=== PATIENT | male | born 1960 | race Caucasian/White ===

== ENCOUNTER 2018-03-02 10:06 | Inpatient (IN) | payer MEDICAID ==
[~2018-03-02] VITALS: Ht 167.6 cm; Wt 49.0 kg
[2018-03-02] MEDS ORDERED: ASPIRIN 81MG TABLET PO ONE (10:45)
[2018-03-02 11:03] LABS: BASOPHILS % 0.3 % (0.0-2.0); HEMATOCRIT. 44.3 % (42.0-52.0); HEMOGLOBIN. 14.6 g/dL (14.0-18.0); LYMPHOCYTES % 39.5 % (20.0-50.0); MEAN CORPUSCULAR HEMOGLOBIN 27.5 pg (28.0-32.0); MEAN CORPUSCULAR VOLUME 83.5 fL (80.0-94.0); MEAN PLATELET VOLUME 9.8 fl (7.4-10.4); MONOCYTES % 9.4 % (2.0-8.0); NEUTROPHILS % 49.8 % (40.0-76.0); PLATELET 106 x1000/uL (130-400)
[2018-03-02 11:11] LABS: CHLORIDE 109 mEq/L (98-107)
[2018-03-02 11:12] LABS: INR 1.1; PARTIAL THROMBOPLASTIN TIME 26.8 sec (23.4-31.0); PROTHROMBIN TIME 10.8 sec (9.1-11.1)
[2018-03-02 11:18] LABS: CREATINE KINASE 50 IU/L (39-308)
[2018-03-02 11:23] LABS: CREATINE KINASE MB FRACTION 1.9 ng/mL (0.5-3.6)
[2018-03-02] MEDS ORDERED: FUROSEMIDE 40MG/4ML VIAL IVP ONE (11:30)
[2018-03-02] MEDS ORDERED: ONDANSETRON HCL 4MG/2ML INJ IV PRN (13:00)
[2018-03-02] MEDS ORDERED: HYDROCODONE/ACETAMINOPHEN 5/325MG TABLET PO PRN (13:00)
[2018-03-02] MEDS ORDERED: MAGNESIUM/ALUMINUM HYDROXIDE/SIMETHICONE 30ML UDC PO PRN (13:00)
[2018-03-02] MEDS ORDERED: HYDROCODONE/ACETAMINOPHEN 10/325MG TABLET PO PRN (13:00)
[2018-03-02] MEDS ORDERED: ACETAMINOPHEN 325MG TABLET PO PRN (13:00)
[2018-03-02] MEDS ORDERED: IPRATROPIUM/ALBUTEROL 0.5-3(2.5)MG/3ML NEB INH PRN (13:00)
[2018-03-02] MEDS ORDERED: ACETAMINOPHEN 650MG SUPP PR PRN (13:00)
[2018-03-02] MEDS ORDERED: ACETAMINOPHEN 650MG/20.3ML UDC GT PRN (13:00)
[2018-03-02 17:04] VITALS: BP 112/74
[2018-03-02 17:05] VITALS: BP 112/84
[2018-03-02] MEDS: ENOXAPARIN 40MG/0.4ML SYR SUBCUT SCH (18:11)
[2018-03-02 20:00] VITALS: BP 117/67
[2018-03-02 21:49] LABS: CREATINE KINASE 59 IU/L (39-308); CREATINE KINASE MB FRACTION 1.6 ng/mL (0.5-3.6)
[2018-03-03] VITALS (7 sets, daily range): BP systolic 103–121; BP diastolic 61–72
[2018-03-03 01:06] LABS: CREATINE KINASE 43 IU/L (39-308); CREATINE KINASE MB FRACTION 1.3 ng/mL (0.5-3.6)
[2018-03-03 06:29] LABS: BASOPHILS % 0.3 % (0.0-2.0); EOSINOPHILS % 2.1 % (0.0-5.0); HEMATOCRIT. 48.3 % (42.0-52.0); HEMOGLOBIN. 15.9 g/dL (14.0-18.0); LYMPHOCYTES % 34.9 % (20.0-50.0); MEAN CORPUSCULAR HEMOGLOBIN 27.4 pg (28.0-32.0); MEAN CORPUSCULAR VOLUME 82.9 fL (80.0-94.0); MEAN PLATELET VOLUME 11.4 fl (7.4-10.4); MONOCYTES % 11.6 % (2.0-8.0); NEUTROPHILS % 51.1 % (40.0-76.0); PLATELET 125 x1000/uL (130-400); RED BLOOD CELL COUNT 5.83 mill/uL (4.7-6.1); RED CELL DISTRIBUTION WIDTH 16.1 % (11.6-14.6)
[2018-03-03 06:54] LABS: CHLORIDE 105 mEq/L (98-107)
[2018-03-03 07:11] LABS: HDL CHOLESTEROL 46 mg/dL (40-59); LDL CHOLESTEROL 101 mg/dL (5-100); T4 FREE 1.18 ng/dL (0.76-1.46)
[2018-03-03] MEDS ORDERED: ASPIRIN 81MG TABLET PO SCH (10:30)
[2018-03-03] MEDS: ENOXAPARIN 40MG/0.4ML SYR SUBCUT SCH (17:30)
[2018-03-03] MEDS ORDERED: METOPROLOL TARTRATE 25MG TABLET PO SCH (21:00)
[2018-03-04] MEDS ORDERED: FUROSEMIDE 40MG TABLET PO SCH (09:00)
[2018-03-04] MEDS ORDERED: LISINOPRIL 5MG TABLET PO SCH (09:00)
== END 2018-03-03 21:15 | disposition home or self-care (01) | DRG 194 ==
LOC: ER 10:06 → 7WST 11:29 → EDBEDREQ 11:31 → EDBEDREQTM 11:31 → ENRESERV 15:16 → CANBEDREQ 16:18
PROVIDERS: ADMIT Internal Medicine; ATTEND Internal Medicine
DX: I11.0 Hypertensive heart disease with heart failure (principal); E44.1 Mild protein-calorie malnutrition; I34.0 Nonrheumatic mitral (valve) insufficiency; I50.33 Acute on chronic diastolic (congestive) heart failure; R07.89 Other chest pain
CPT/HCPCS: 36415; 71045; 80061; 82550; 82553; 83880; 84439; 84443; 84481; 84484; 93005; 93306; 93970; 96374; 97161; 99291; J1650; J1940

== ENCOUNTER 2018-03-07 21:36 | Emergency (ER) | payer MEDICAID ==
[~2018-03-07] VITALS: Ht 167.6 cm; Wt 67.0 kg
[2018-03-07] MEDS ORDERED: FAMOTIDINE 20MG/2ML VIAL IV STA (22:29)
[2018-03-07] MEDS ORDERED: SODIUM CHLORIDE 0.9% 1,000 ML IV ONE (22:29)
[2018-03-07] MEDS ORDERED: MAGNESIUM/ALUMINUM HYDROXIDE/SIMETHICONE 30ML UDC PO STA (22:29)
[2018-03-07] MEDS ORDERED: ONDANSETRON HCL 4MG/2ML INJ IV STA (22:29)
[2018-03-07 23:20] LABS: BASOPHILS % 0.2 % (0.0-2.0); EOSINOPHILS % 0.1 % (0.0-5.0); HEMATOCRIT. 54.3 % (42.0-52.0); LYMPHOCYTES % 24.5 % (20.0-50.0); MEAN CORPUSCULAR HEMOGLOBIN 27.9 pg (28.0-32.0); MEAN CORPUSCULAR VOLUME 84.2 fL (80.0-94.0); MEAN PLATELET VOLUME 10.2 fl (7.4-10.4); MONOCYTES % 6.7 % (2.0-8.0); NEUTROPHILS % 68.5 % (40.0-76.0); PLATELET 123 x1000/uL (130-400); RED BLOOD CELL COUNT 6.45 mill/uL (4.7-6.1); RED CELL DISTRIBUTION WIDTH 16.3 % (11.6-14.6)
[2018-03-07 23:27] LABS: INR 1.2; PROTHROMBIN TIME 11.8 sec (9.1-11.1)
[2018-03-07 23:31] LABS: CHLORIDE 104 mEq/L (98-107)
[2018-03-07 23:39] LABS: ETHANOL BLOOD < 10 mg/dL
[2018-03-08 03:08] VITALS: BP 102/67
[2018-03-08 03:08] LABS: CLARITY URINE CLEAR (CLEAR); COLOR URINE YELLOW (YELLOW); KETONES URINE NEGATIVE (NEGATIVE); LEUKOCYTE ESTERASE URINE NEGATIVE (NEGATIVE); NITRITE URINE NEGATIVE (NEGATIVE); OCCULT BLOOD URINE NEGATIVE (NEGATIVE); PROTEIN URINE TRACE (NEGATIVE); UROBILINOGEN URINE 0.2 E.U./dL (0.2-1.0)
[2018-03-08 03:19] LABS: *AMPHETAMINES SCREEN URINE NEGATIVE (NEGATIVE); *BARBITURATES SCREEN URINE NEGATIVE (NEGATIVE); *BENZODIAZEPINES SCREEN URINE NEGATIVE (NEGATIVE); *COCAINE SCREEN URINE NEGATIVE (NEGATIVE)
[2018-03-08 03:20] LABS: CANNABINOID URINE SCREEN NEGATIVE (NEGATIVE); METHADONE URINE SCREEN NEGATIVE (NEGATIVE); OPIATES URINE SCREEN NEGATIVE (NEGATIVE); PHENCYCLIDINE URINE SCREEN NEGATIVE (NEGATIVE)
== END 2018-03-08 03:09 | disposition home or self-care (01) ==
LOC: ER 21:36
DX: R10.84 Generalized abdominal pain (principal); R11.2 Nausea with vomiting, unspecified; E86.0 Dehydration; E78.00 Pure hypercholesterolemia, unspecified; R73.9 Hyperglycemia, unspecified; I10 Essential (primary) hypertension; R42 Dizziness and giddiness; Z98.890 Other specified postprocedural states
CPT/HCPCS: 36415; 71045; 80053; 80305; 81003; 83690; 83880; 84484; 85025; 85610; 93005; 96361; 96374; 96375; 99285; G0482; J2405; J3490; J7030

== ENCOUNTER 2018-03-10 12:05 | Inpatient (IN) | payer MEDICAID ==
[~2018-03-10] VITALS: Ht 167.6 cm; Wt 69.0 kg
[2018-03-10 14:12] LABS: BASOPHILS % 0.3 % (0.0-2.0); EOSINOPHILS % 0.2 % (0.0-5.0); HEMOGLOBIN. 15.3 g/dL (14.0-18.0); LYMPHOCYTES % 31.7 % (20.0-50.0); MEAN CORPUSCULAR HEMOGLOBIN 27.8 pg (28.0-32.0); MEAN CORPUSCULAR VOLUME 83.8 fL (80.0-94.0); MEAN PLATELET VOLUME 10.6 fl (7.4-10.4); MONOCYTES % 11.5 % (2.0-8.0); NEUTROPHILS % 56.3 % (40.0-76.0); PLATELET 108 x1000/uL (130-400); RED CELL DISTRIBUTION WIDTH 15.9 % (11.6-14.6)
[2018-03-10 14:27] LABS: CHLORIDE 110 mEq/L (98-107)
[2018-03-10] MEDS ORDERED: CLONIDINE 0.1MG TABLET PO PRN (17:45)
[2018-03-10] MEDS ORDERED: ONDANSETRON HCL 4MG/2ML INJ IV PRN (17:45)
[2018-03-10] MEDS ORDERED: DOCUSATE SODIUM 250MG CAPSULE PO PRN (17:45)
[2018-03-10] MEDS ORDERED: ACETAMINOPHEN 325MG TABLET PO PRN (17:45)
[2018-03-10] MEDS ORDERED: IPRATROPIUM/ALBUTEROL 0.5-3(2.5)MG/3ML NEB HHN PRN (17:45)
[2018-03-10 19:23] LABS: CREATINE KINASE 40 IU/L (39-308); CREATINE KINASE MB FRACTION 1.5 ng/mL (0.5-3.6)
[2018-03-10 20:14] LABS: HEPATITIS B SURFACE ANTIGEN NEGATIVE
[2018-03-10 20:42] LABS: HEPATITIS A AB IGM NEGATIVE (NEGATIVE)
[2018-03-10 22:00] VITALS: BP 113/80
[2018-03-10 22:05] VITALS: BP 131/80
[2018-03-10] MEDS ORDERED: IOHEXOL-350 100 ML BOTTLE ONE (22:14)
[2018-03-10] MEDS ORDERED: METO25TA6 PO (23:01)
[2018-03-10] MEDS ORDERED: FURO40TA5 PO (23:01)
[2018-03-10] MEDS ORDERED: LISI-186 PO (23:01)
[2018-03-11] VITALS: BP 109/109
[2018-03-11 04:00] VITALS: BP 116/82
[2018-03-11 06:13] LABS: HEMATOCRIT 46.1 % (42.0-52.0); HEMOGLOBIN 15.4 g/dL (14.0-18.0); MEAN CORPUSCULAR HEMOGLOBIN 27.7 pg (28.0-32.0); MEAN CORPUSCULAR VOLUME 83.1 fL (80.0-94.0); PLATELET 110 x1000/uL (130-400); RED BLOOD CELL COUNT 5.55 mill/uL (4.7-6.1); RED CELL DISTRIBUTION WIDTH 16.3 % (11.6-14.6)
[2018-03-11 07:07] LABS: CHLORIDE 111 mEq/L (98-107)
[2018-03-11 08:00] VITALS: BP 116/74
[2018-03-11] MEDS: FUROSEMIDE 40MG/4ML VIAL IVP SCH ×2 (10:05→17:56)
[2018-03-11 12:00] VITALS: BP 131/81
[2018-03-11 12:14] LABS: T4 FREE 1.39 ng/dL (0.76-1.46)
[2018-03-11 16:00] VITALS: BP 95/59
[2018-03-11 16:01] LABS: CREATINE KINASE 45 IU/L (39-308); CREATINE KINASE MB FRACTION 1.4 ng/mL (0.5-3.6)
[2018-03-11 20:00] VITALS: BP 119/63
[2018-03-11] MEDS: METOPROLOL TARTRATE 25MG TABLET PO SCH (21:41)
[2018-03-12] VITALS (18 sets, daily range): BP systolic 90–122; BP diastolic 50–71
[2018-03-12 00:08] LABS: CREATINE KINASE 35 IU/L (39-308); CREATINE KINASE MB FRACTION 1.4 ng/mL (0.5-3.6)
[2018-03-12 07:03] LABS: BASOPHILS % 0.2 % (0.0-2.0); EOSINOPHILS % 1.1 % (0.0-5.0); HEMATOCRIT. 49.4 % (42.0-52.0); HEMOGLOBIN. 16.3 g/dL (14.0-18.0); LYMPHOCYTES % 34.8 % (20.0-50.0); MEAN CORPUSCULAR HEMOGLOBIN 27.5 pg (28.0-32.0); MEAN CORPUSCULAR VOLUME 83.5 fL (80.0-94.0); MEAN PLATELET VOLUME 11.2 fl (7.4-10.4); MONOCYTES % 9.6 % (2.0-8.0); NEUTROPHILS % 54.3 % (40.0-76.0); PLATELET 130 x1000/uL (130-400); RED BLOOD CELL COUNT 5.92 mill/uL (4.7-6.1); RED CELL DISTRIBUTION WIDTH 16.3 % (11.6-14.6)
[2018-03-12 07:25] LABS: CHLORIDE 101 mEq/L (98-107)
[2018-03-12 07:48] LABS: CREATINE KINASE 33 IU/L (39-308); CREATINE KINASE MB FRACTION < 1.0 ng/mL (0.5-3.6)
[2018-03-12] MEDS ORDERED: IODIXANOL 320MG/ML 100 ML BOTTLE IV ONE (08:39)
[2018-03-12] MEDS ORDERED: LIDOCAINE HCL 1% 20ML VIAL (Pyxis) INJ ONE (08:40)
[2018-03-12] MEDS ORDERED: MIDAZOLAM HCL 2 MG/2 ML VIAL ONE (08:48)
[2018-03-12] MEDS ORDERED: FENTANYL CITRATE/PF 50MCG/ML 2ML VIAL ONE (08:48)
[2018-03-12] MEDS ORDERED: LIDOCAINE HCL 2% JELLY 5ML ONE (08:49)
[2018-03-12] MEDS ORDERED: TETRACAINE/BENZOCAINE/BUTAMBEN 20 GM SPRAY MM ONE (08:49)
[2018-03-12] MEDS ORDERED: ACETAMINOPHEN 325MG TABLET PO PRN (09:45)
[2018-03-12] MEDS ORDERED: ATROPINE SULFATE 1MG/10ML SYR IV PRN (09:45)
[2018-03-12] MEDS: FUROSEMIDE 40MG/4ML VIAL IVP SCH ×3 (10:02→16:58)
[2018-03-12] MEDS: METOPROLOL TARTRATE 25MG TABLET PO SCH ×2 (10:02→21:07)
[2018-03-12] MEDS ORDERED: HEPARIN SODIUM 1,000 UNIT/1ML VIAL IV ONE (10:26)
[2018-03-12] MEDS ORDERED: NICARDIPINE 100MCG/ML 10ML VIAL (CATH LAB) IV ONE (10:26)
[2018-03-12] MEDS ORDERED: NITROGLYCERIN 50MCG/ML 10ML VIAL (CATH LAB) IV ONE (10:26)
[2018-03-12] MEDS ORDERED: POTASSIUM CHLORIDE 20MEQ TABLET SR PO SCH (13:15)
[2018-03-13] VITALS (18 sets, daily range): BP systolic 94–119; BP diastolic 30–75
[2018-03-13 07:23] LABS: BASOPHILS % 0.6 % (0.0-2.0); EOSINOPHILS % 1.1 % (0.0-5.0); HEMATOCRIT. 46.6 % (42.0-52.0); HEMOGLOBIN. 15.7 g/dL (14.0-18.0); LYMPHOCYTES % 29.1 % (20.0-50.0); MEAN CORPUSCULAR HEMOGLOBIN 27.7 pg (28.0-32.0); MEAN CORPUSCULAR VOLUME 82.3 fL (80.0-94.0); MEAN PLATELET VOLUME 10.3 fl (7.4-10.4); MONOCYTES % 9.2 % (2.0-8.0); PLATELET 116 x1000/uL (130-400); RED BLOOD CELL COUNT 5.66 mill/uL (4.7-6.1); RED CELL DISTRIBUTION WIDTH 16.3 % (11.6-14.6)
[2018-03-13 07:32] LABS: INR 1.2; PROTHROMBIN TIME 11.8 sec (9.1-11.1)
[2018-03-13 07:50] LABS: CHLORIDE 101 mEq/L (98-107)
[2018-03-13] MEDS: FUROSEMIDE 40MG/4ML VIAL IVP SCH (09:08)
[2018-03-13] MEDS: METOPROLOL TARTRATE 25MG TABLET PO SCH ×2 (09:08→21:00)
[2018-03-13] MEDS ORDERED: POTASSIUM CHLORIDE 20MEQ TABLET SR PO NR (09:15)
[2018-03-13] MEDS: FUROSEMIDE 40MG TABLET PO SCH (17:50)
[2018-03-14] VITALS (15 sets, daily range): BP systolic 88–122; BP diastolic 36–69
[2018-03-14 06:41] LABS: BASOPHILS % 0.4 % (0.0-2.0); EOSINOPHILS % 2.3 % (0.0-5.0); HEMOGLOBIN. 15.3 g/dL (14.0-18.0); LYMPHOCYTES % 34.8 % (20.0-50.0); MEAN CORPUSCULAR HEMOGLOBIN 27.9 pg (28.0-32.0); MEAN CORPUSCULAR VOLUME 82.2 fL (80.0-94.0); MEAN PLATELET VOLUME 10.4 fl (7.4-10.4); MONOCYTES % 10.6 % (2.0-8.0); NEUTROPHILS % 51.9 % (40.0-76.0); PLATELET 110 x1000/uL (130-400); RED BLOOD CELL COUNT 5.47 mill/uL (4.7-6.1); RED CELL DISTRIBUTION WIDTH 16.1 % (11.6-14.6)
[2018-03-14 07:13] LABS: CHLORIDE 100 mEq/L (98-107)
[2018-03-14] MEDS: FUROSEMIDE 40MG TABLET PO SCH ×2 (09:08→17:25)
[2018-03-14] MEDS: METOPROLOL TARTRATE 25MG TABLET PO SCH ×2 (09:08→22:12)
[2018-03-14] MEDS ORDERED: POTASSIUM CHLORIDE 20MEQ TABLET SR PO NR (09:45)
[2018-03-15] VITALS (12 sets, daily range): BP systolic 90–116; BP diastolic 49–73
[2018-03-15 06:27] LABS: BASOPHILS % 0.4 % (0.0-2.0); EOSINOPHILS % 2.1 % (0.0-5.0); HEMATOCRIT. 44.9 % (42.0-52.0); HEMOGLOBIN. 14.9 g/dL (14.0-18.0); LYMPHOCYTES % 40.8 % (20.0-50.0); MEAN CORPUSCULAR HEMOGLOBIN 27.5 pg (28.0-32.0); MEAN CORPUSCULAR VOLUME 82.6 fL (80.0-94.0); MEAN PLATELET VOLUME 10.3 fl (7.4-10.4); NEUTROPHILS % 46.7 % (40.0-76.0); PLATELET 114 x1000/uL (130-400); RED BLOOD CELL COUNT 5.43 mill/uL (4.7-6.1); RED CELL DISTRIBUTION WIDTH 15.9 % (11.6-14.6)
[2018-03-15 06:32] LABS: CHLORIDE 104 mEq/L (98-107)
[2018-03-15] MEDS: METOPROLOL TARTRATE 25MG TABLET PO SCH ×2 (08:26→21:25)
[2018-03-15] MEDS: FUROSEMIDE 40MG TABLET PO SCH ×2 (08:26→17:25)
[2018-03-15] MEDS ORDERED: ACETAMINOPHEN 325MG TABLET PO PRN (12:00)
[2018-03-15] MEDS ORDERED: NITROGLYCERIN 0.4MG TABLET SL SL PRN (12:00)
[2018-03-15] MEDS: POTASSIUM CHLORIDE 20MEQ TABLET SR PO SCH (12:13)
[2018-03-16] VITALS (12 sets, daily range): BP systolic 95–146; BP diastolic 57–90
[2018-03-16 06:40] LABS: BASOPHILS % 0.3 % (0.0-2.0); EOSINOPHILS % 1.6 % (0.0-5.0); HEMATOCRIT. 44.9 % (42.0-52.0); HEMOGLOBIN. 14.6 g/dL (14.0-18.0); LYMPHOCYTES % 41.5 % (20.0-50.0); MEAN CORPUSCULAR HEMOGLOBIN 27.1 pg (28.0-32.0); MEAN CORPUSCULAR VOLUME 83.3 fL (80.0-94.0); MEAN PLATELET VOLUME 10.5 fl (7.4-10.4); MONOCYTES % 10.7 % (2.0-8.0); NEUTROPHILS % 45.9 % (40.0-76.0); PLATELET 115 x1000/uL (130-400); RED BLOOD CELL COUNT 5.39 mill/uL (4.7-6.1); RED CELL DISTRIBUTION WIDTH 16.3 % (11.6-14.6)
[2018-03-16 06:46] LABS: CHLORIDE 105 mEq/L (98-107)
[2018-03-16] MEDS: FUROSEMIDE 40MG TABLET PO SCH ×2 (08:03→18:00)
[2018-03-16] MEDS: POTASSIUM CHLORIDE 20MEQ TABLET SR PO SCH (08:03)
[2018-03-16] MEDS: METOPROLOL TARTRATE 25MG TABLET PO SCH ×2 (08:04→21:00)
[2018-03-16] MEDS ORDERED: CHLORHEXIDINE GLUCONATE 4% EXTERNAL USE TOP SCH (21:00)
[2018-03-16] MEDS ORDERED: BISACODYL 10MG SUPP PR PRN (21:00)
[2018-03-16] MEDS ORDERED: DOCUSATE SODIUM 100MG CAPSULE PO SCH (21:00)
[2018-03-16] MEDS ORDERED: ASCORBIC ACID 500 MG TABLET PO SCH (21:00)
[2018-03-16] MEDS: ALLOPURINOL 300 MG TABLET PO SCH (21:24)
[2018-03-17] VITALS (66 sets, daily range): BP systolic 70–191; BP diastolic 23–191
[2018-03-17] MEDS ORDERED: DEL NIDO ELECTROLYTE-S(PH 7.4) 1,000 ML IV ONE ×2 (00:30)
[2018-03-17] MEDS ORDERED: DOBUTAMINE HCL 250 MG in DEXT 5% WATER 230 ML IV ONE (00:30)
[2018-03-17] MEDS ORDERED: CEFAZOLIN 2,000 MG in DEXT 5% WATER 100 ML IV ONE (00:30)
[2018-03-17] MEDS ORDERED: INSULIN REGULAR (DRIP) 100 UNITS in SODIUM CHLORIDE 0.9% 99 ML IV ONE (00:30)
[2018-03-17] MEDS ORDERED: NICARDIPINE 40MG/200ML PREMIX 200 ML IV ONE (00:30)
[2018-03-17] MEDS ORDERED: NOREPINEPHRINE 4 MG in DEXT 5% WATER 246 ML IV ONE (00:30)
[2018-03-17] MEDS ORDERED: EPINEPHRINE 4 MG in DEXT 5% WATER 246 ML IV ONE (00:30)
[2018-03-17] MEDS ORDERED: AMINOCAPROIC ACID 10,000 MG in SODIUM CHLORIDE 0.9% 460 ML IV ONE (00:30)
[2018-03-17 01:08] LABS: CLARITY URINE CLEAR (CLEAR); COLOR URINE YELLOW (YELLOW); KETONES URINE NEGATIVE (NEGATIVE); LEUKOCYTE ESTERASE URINE NEGATIVE (NEGATIVE); NITRITE URINE NEGATIVE (NEGATIVE); OCCULT BLOOD URINE NEGATIVE (NEGATIVE); PH URINE 5.5 (4.5-8.0); PROTEIN URINE NEGATIVE (NEGATIVE); SPECIFIC GRAVITY URINE 1.013 (1.005-1.030); UROBILINOGEN URINE 0.2 E.U./dL (0.2-1.0)
[2018-03-17 04:09] LABS: BASOPHILS % 0.8 % (0.0-2.0); EOSINOPHILS % 1.1 % (0.0-5.0); HEMATOCRIT. 44.2 % (42.0-52.0); HEMOGLOBIN. 14.6 g/dL (14.0-18.0); LYMPHOCYTES % 41.6 % (20.0-50.0); MEAN CORPUSCULAR HEMOGLOBIN 27.3 pg (28.0-32.0); MEAN CORPUSCULAR VOLUME 82.6 fL (80.0-94.0); MEAN PLATELET VOLUME 10.2 fl (7.4-10.4); MONOCYTES % 9.3 % (2.0-8.0); NEUTROPHILS % 47.2 % (40.0-76.0); PLATELET 112 x1000/uL (130-400); RED BLOOD CELL COUNT 5.35 mill/uL (4.7-6.1); RED CELL DISTRIBUTION WIDTH 16.6 % (11.6-14.6)
[2018-03-17 04:11] LABS: INR 1.2
[2018-03-17 04:14] LABS: CHLORIDE 105 mEq/L (98-107)
[2018-03-17] MEDS: ALLOPURINOL 300 MG TABLET PO SCH (05:19)
[2018-03-17] MEDS ORDERED: NORMAL SALINE 0.9% 10 ML SYR ONE (06:21)
[2018-03-17] MEDS ORDERED: THROMBIN (BOVINE) 5000 UNITS/VIAL TOP ONE (06:21)
[2018-03-17] MEDS ORDERED: BACITRACIN 50,000 UNITS/VIAL ONE (06:22)
[2018-03-17] MEDS ORDERED: AMIODARONE HCL 50MG/ML 3ML VIAL IV ONE (06:48)
[2018-03-17] MEDS ORDERED: AMINOCAPROIC ACID 250 MG/ML 20ML VIAL ONE (06:48)
[2018-03-17] MEDS ORDERED: ALBUMIN HUMAN 25GM/100ML (25%) IV ONE (06:48)
[2018-03-17] MEDS ORDERED: CALCIUM CHLORIDE 1GM/10ML SYR IV ONE (06:49)
[2018-03-17] MEDS ORDERED: MANNITOL 20% 500 ML IV ONE (06:49)
[2018-03-17] MEDS ORDERED: SODIUM BICARBONATE 8.4% 1 MEQ/ML 50ML SYR IV ONE ×2 (06:49→06:50)
[2018-03-17] MEDS ORDERED: HEPARIN 10,000 UNITS/ML VIAL ONE ×2 (06:49→07:37)
[2018-03-17] MEDS ORDERED: PHENYLEPHRINE HCL 10 MG/ML 1ML (IV VIAL) IV ONE (06:49)
[2018-03-17] MEDS ORDERED: HEPARIN 1000 UNITS/ML 10ML ONE (06:50)
[2018-03-17] MEDS ORDERED: LIDOCAINE HCL 2% JELLY 5ML ONE (07:33)
[2018-03-17] MEDS ORDERED: CHLORHEXIDINE GLUCONATE 4% EXTERNAL USE TOP SCH (09:00)
[2018-03-17] MEDS: FUROSEMIDE 40MG TABLET PO SCH (09:00)
[2018-03-17] MEDS: POTASSIUM CHLORIDE 20MEQ TABLET SR PO SCH (09:00)
[2018-03-17] MEDS: METOPROLOL TARTRATE 25MG TABLET PO SCH (09:00)
[2018-03-17] MEDS ORDERED: WATER IV NR (09:30)
[2018-03-17] MEDS ORDERED: EPINEPHRINE IV NR (09:30)
[2018-03-17] MEDS ORDERED: DEXT 5% IV NR (09:30)
[2018-03-17] MEDS ORDERED: CALCIUM GLUCONATE IV NR (09:30)
[2018-03-17] MEDS ORDERED: MORPHINE SULFATE 10 MG/ML CPJ ONE (09:32)
[2018-03-17] MEDS ORDERED: MIDAZOLAM HCL 2 MG/2 ML VIAL ONE (09:32)
[2018-03-17] MEDS ORDERED: FENTANYL CITRATE/PF 50MCG/ML 2ML VIAL ONE (09:32)
[2018-03-17] MEDS ORDERED: MIDAZOLAM HCL 5 MG/5 ML VIAL ONE (09:32)
[2018-03-17] MEDS ORDERED: SUFENTANIL CITRATE 50 MCG/ML 5ML AMPUL IV ONE (11:13)
[2018-03-17] MEDS ORDERED: ALFENTANIL HCL 500 MCG/ML 2ML AMPUL IJ ONE (11:13)
[2018-03-17] MEDS ORDERED: DESMOPRESSIN ACETATE 4MCG/ML AMP ONE (12:07)
[2018-03-17] MEDS ORDERED: NITROGLYCERIN 50MG PREMIX 250 ML IV PRN (13:21)
[2018-03-17] MEDS ORDERED: SODIUM CHLORIDE 0.9% 500 ML IV PRN (13:21)
[2018-03-17] MEDS ORDERED: MORPHINE SULFATE 4 MG/ML CPJ (NOT FOR IM USE) IV PRN (13:30)
[2018-03-17] MEDS ORDERED: OXYCODONE HCL/ACETAMINOPHEN 5/325MG TABLET PO PRN ×2 (13:30)
[2018-03-17] MEDS ORDERED: ACETAMINOPHEN 325MG TABLET PO PRN (13:30)
[2018-03-17] MEDS ORDERED: MAGNESIUM SULFATE 3 GM in DEXT 5% WATER 100 ML IV PRN (13:30)
[2018-03-17 13:31] LABS: BASOPHILS % 0.1 % (0.0-2.0); EOSINOPHILS % 0.4 % (0.0-5.0); HEMATOCRIT. 26.1 % (42.0-52.0); HEMOGLOBIN. 8.8 g/dL (14.0-18.0); MEAN CORPUSCULAR HEMOGLOBIN 27.9 pg (28.0-32.0); MEAN CORPUSCULAR VOLUME 82.9 fL (80.0-94.0); MEAN PLATELET VOLUME 8.6 fl (7.4-10.4); MONOCYTES % 3.8 % (2.0-8.0); NEUTROPHILS % 70.7 % (40.0-76.0); PLATELET 170 x1000/uL (130-400); RED BLOOD CELL COUNT 3.15 mill/uL (4.7-6.1)
[2018-03-17 13:37] LABS: CHLORIDE 106 mEq/L (98-107); INR 1.5; PARTIAL THROMBOPLASTIN TIME 29.2 sec (23.4-31.0); PROTHROMBIN TIME 15.2 sec (9.1-11.1)
[2018-03-17 13:38] LABS: PHOSPHORUS 7.1 mg/dL (2.5-4.9)
[2018-03-17] MEDS ORDERED: MAGNESIUM SULFATE 2 GM in DEXTROSE 5% WATER 50 ML IV PRN (13:47)
[2018-03-17 13:58] LABS: BG BASE EXCESS -1.8 mmol/L (-2.0-2.0); BG CARBOXYHEMOGLOBIN 0.5 % (0.5-1.5); BG DEOXYHEMOGLOBIN 8.1 % (0.0-5.0); BG FRACTION INSPIRED OXYGEN 100; BG HCO3 ACT 25.6 mmol/L (22.0-26.0); BG METHEMOGLOBIN 0.5 % (0.0-1.5); BG OXYGEN SATURATION 91.8 % (92.0-98.5); BG OXYHEMOGLOBIN 90.9 % (94.0-97.0); BG PCO2 58.5 mmHg (35.0-45.0); BG PH 7.259 (7.350-7.450); BG PO2 77.6 mmHg (75.0-100.0); BG SAMPLE SITE A-LINE; BG TIDAL VOLUME(mL) 500 mL; BG VENT MODE VENT - A/C; BG VENT RATE 12 set
[2018-03-17] MEDS ORDERED: MEPERIDINE HCL/PF 25MG/ML CPJ IM PRN (14:00)
[2018-03-17] MEDS: ALBUMIN HUMAN 12.5G/250ML (5%) IV PRN (14:08)
[2018-03-17 14:37] LABS: BG BASE EXCESS -0.7 mmol/L (-2.0-2.0); BG CARBOXYHEMOGLOBIN 0.4 % (0.5-1.5); BG DEOXYHEMOGLOBIN 4.6 % (0.0-5.0); BG FRACTION INSPIRED OXYGEN 100; BG HCO3 ACT 26.2 mmol/L (22.0-26.0); BG METHEMOGLOBIN 0.8 % (0.0-1.5); BG OXYGEN SATURATION 95.3 % (92.0-98.5); BG OXYHEMOGLOBIN 94.2 % (94.0-97.0); BG PCO2 56.1 mmHg (35.0-45.0); BG PH 7.287 (7.350-7.450); BG PO2 99.6 mmHg (75.0-100.0); BG SAMPLE SITE A-LINE; BG TIDAL VOLUME(mL) 500 mL; BG TOTAL HEMOGLOBIN 8.2 g/dL (12.0-18.0); BG VENT MODE VENT - A/C; BG VENT RATE 12 set
[2018-03-17] MEDS ORDERED: ACETAMINOPHEN 650MG SUPP ONE (14:43)
[2018-03-17] MEDS ORDERED: DEXTROSE 50% WATER 50ML SYRINGE IV PRN ×2 (14:45)
[2018-03-17] MEDS: BLOOD SUGAR DIAGNOSTIC STRIP TEST SCH ×10 (14:45→23:45)
[2018-03-17] MEDS: DOPAMINE 400MG PREMIX 250 ML IV PRN (14:49)
[2018-03-17] MEDS: DEXT 5%/0.45% NACL 1000ML 1,000 ML IV SCH (14:51)
[2018-03-17] MEDS: CEFAZOLIN 1000MG PREMIX 50 ML IV SCH ×2 (14:52→21:59)
[2018-03-17] MEDS: MAGNESIUM 1 G PREMIX 100 ML IV PRN (14:52)
[2018-03-17] MEDS ORDERED: MAGNESIUM 1 G PREMIX 100 ML IV NR (15:00)
[2018-03-17] MEDS: IPRATROPIUM/ALBUTEROL 0.5-3(2.5)MG/3ML NEB HHN SCH ×2 (15:23→23:52)
[2018-03-17] MEDS: MAGNESIUM HYDROXIDE 400MG/5ML 30ML UDC PO SCH ×2 (16:00→20:00)
[2018-03-17] MEDS ORDERED: CALCIUM CHLORIDE 5,000 MG in DEXT 5% WATER 500 ML IV NR (16:00)
[2018-03-17] MEDS: MAGNESIUM/ALUMINUM HYDROXIDE/SIMETHICONE 30ML UDC NG SCH ×2 (16:00→20:00)
[2018-03-17 16:30] LABS: BG BASE EXCESS -0.7 mmol/L (-2.0-2.0); BG CARBOXYHEMOGLOBIN 0.1 % (0.5-1.5); BG DEOXYHEMOGLOBIN 1.3 % (0.0-5.0); BG FRACTION INSPIRED OXYGEN 100; BG HCO3 ACT 25.5 mmol/L (22.0-26.0); BG METHEMOGLOBIN 0.5 % (0.0-1.5); BG OXYGEN SATURATION 98.7 % (92.0-98.5); BG OXYHEMOGLOBIN 98.1 % (94.0-97.0); BG PCO2 49.9 mmHg (35.0-45.0); BG PH 7.326 (7.350-7.450); BG PO2 225.9 mmHg (75.0-100.0); BG SAMPLE SITE A-LINE; BG TIDAL VOLUME(mL) 500 mL; BG VENT MODE VENT - A/C; BG VENT RATE 16 set
[2018-03-17] MEDS ORDERED: COAGULATION FACTOR VIIA RECOMB 2MG VIAL IV NR (17:00)
[2018-03-17] MEDS: KCL 10MEQ/50ML PREMIX 200 ML IV PRN ×6 (17:12→23:45)
[2018-03-17 17:38] LABS: BG BASE EXCESS -1.2 mmol/L (-2.0-2.0); BG CARBOXYHEMOGLOBIN 0.2 % (0.5-1.5); BG DEOXYHEMOGLOBIN 1.8 % (0.0-5.0); BG FRACTION INSPIRED OXYGEN 70; BG HCO3 ACT 25.1 mmol/L (22.0-26.0); BG METHEMOGLOBIN 0.4 % (0.0-1.5); BG OXYGEN SATURATION 98.2 % (92.0-98.5); BG OXYHEMOGLOBIN 97.6 % (94.0-97.0); BG PCO2 50.6 mmHg (35.0-45.0); BG PH 7.313 (7.350-7.450); BG PO2 150.6 mmHg (75.0-100.0); BG SAMPLE SITE A-LINE; BG TIDAL VOLUME(mL) 500 mL; BG VENT MODE VENT - A/C; BG VENT RATE 16 set
[2018-03-17 18:11] LABS: HEMATOCRIT 21.7 % (42.0-52.0); HEMOGLOBIN 7.5 g/dL (14.0-18.0)
[2018-03-17 19:36] LABS: BG BASE EXCESS -0.8 mmol/L (-2.0-2.0); BG DEOXYHEMOGLOBIN 2.4 % (0.0-5.0); BG FRACTION INSPIRED OXYGEN 60; BG HCO3 ACT 25.1 mmol/L (22.0-26.0); BG METHEMOGLOBIN 0.6 % (0.0-1.5); BG OXYGEN SATURATION 97.6 % (92.0-98.5); BG PCO2 47.3 mmHg (35.0-45.0); BG PH 7.342 (7.350-7.450); BG PIP 22 cmH2O; BG PO2 123.4 mmHg (75.0-100.0); BG SAMPLE SITE A-LINE; BG TOTAL HEMOGLOBIN 8.3 g/dL (12.0-18.0); BG VENT MODE VENT - A/C; BG VENT RATE 16 set
[2018-03-17] MEDS: INSULIN REGULAR (DRIP) 100 UNITS in SODIUM CHLORIDE 0.9% 100 ML IV SCH (19:38)
[2018-03-17] MEDS: ACETAMINOPHEN 650MG SUPP PR PRN (22:01)
[2018-03-17 22:22] LABS: BG BASE EXCESS -2.1 mmol/L (-2.0-2.0); BG CARBOXYHEMOGLOBIN 0.3 % (0.5-1.5); BG DEOXYHEMOGLOBIN 1.9 % (0.0-5.0); BG FRACTION INSPIRED OXYGEN 60; BG HCO3 ACT 23.1 mmol/L (22.0-26.0); BG METHEMOGLOBIN 0.5 % (0.0-1.5); BG OXYGEN SATURATION 98.1 % (92.0-98.5); BG OXYHEMOGLOBIN 97.3 % (94.0-97.0); BG PCO2 41.5 mmHg (35.0-45.0); BG PH 7.364 (7.350-7.450); BG PIP 21 cmH2O; BG PO2 151.4 mmHg (75.0-100.0); BG SAMPLE SITE A-LINE; BG TOTAL HEMOGLOBIN 10.1 g/dL (12.0-18.0); BG VENT MODE VENT - A/C; BG VENT RATE 16 set
[2018-03-18] VITALS (153 sets, daily range): BP systolic 76–177; BP diastolic 23–177
[2018-03-18] MEDS: BLOOD SUGAR DIAGNOSTIC STRIP TEST SCH ×24 (00:45→23:45)
[2018-03-18 00:53] LABS: BG BASE EXCESS -1.3 mmol/L (-2.0-2.0); BG CARBOXYHEMOGLOBIN 0.3 % (0.5-1.5); BG DEOXYHEMOGLOBIN 1.9 % (0.0-5.0); BG FRACTION INSPIRED OXYGEN 50; BG HCO3 ACT 23.7 mmol/L (22.0-26.0); BG METHEMOGLOBIN 0.4 % (0.0-1.5); BG OXYGEN SATURATION 98.1 % (92.0-98.5); BG OXYHEMOGLOBIN 97.4 % (94.0-97.0); BG PCO2 40.9 mmHg (35.0-45.0); BG PH 7.381 (7.350-7.450); BG PIP 21 cmH2O; BG SAMPLE SITE A-LINE; BG TIDAL VOLUME(mL) 550 mL; BG VENT MODE VENT - A/C; BG VENT RATE 16 set
[2018-03-18] MEDS: KCL 10MEQ/50ML PREMIX 200 ML IV PRN ×2 (01:07→02:47)
[2018-03-18] MEDS: EPINEPHRINE 1 MG in DEXT 5% WATER 249 ML IV PRN ×3 (01:09→10:43)
[2018-03-18] MEDS: DOPAMINE 400MG PREMIX 250 ML IV PRN (01:20)
[2018-03-18 02:08] LABS: HEMOGLOBIN. 10.2 g/dL (14.0-18.0); MEAN CORPUSCULAR HEMOGLOBIN 28.7 pg (28.0-32.0); MEAN CORPUSCULAR VOLUME 84.4 fL (80.0-94.0); MEAN PLATELET VOLUME 10.5 fl (7.4-10.4); PLATELET 89 x1000/uL (130-400); RED BLOOD CELL COUNT 3.55 mill/uL (4.7-6.1); RED CELL DISTRIBUTION WIDTH 14.4 % (11.6-14.6)
[2018-03-18] MEDS ORDERED: FAMOTIDINE 20MG/2ML VIAL IV NR (02:45)
[2018-03-18] MEDS: ACETAMINOPHEN 650MG SUPP PR PRN (03:02)
[2018-03-18 03:38] LABS: PLATELET ESTIMATE DECREASED
[2018-03-18] MEDS: IPRATROPIUM/ALBUTEROL 0.5-3(2.5)MG/3ML NEB HHN SCH ×4 (03:40→21:18)
[2018-03-18] MEDS: MAGNESIUM/ALUMINUM HYDROXIDE/SIMETHICONE 30ML UDC NG SCH ×7 (04:00→19:48)
[2018-03-18] MEDS: MAGNESIUM HYDROXIDE 400MG/5ML 30ML UDC PO SCH ×7 (04:00→19:48)
[2018-03-18 04:50] LABS: BG CARBOXYHEMOGLOBIN 0.3 % (0.5-1.5); BG DEOXYHEMOGLOBIN 2.1 % (0.0-5.0); BG FRACTION INSPIRED OXYGEN 40; BG HCO3 ACT 23.9 mmol/L (22.0-26.0); BG METHEMOGLOBIN 0.4 % (0.0-1.5); BG OXYGEN SATURATION 97.9 % (92.0-98.5); BG OXYHEMOGLOBIN 97.2 % (94.0-97.0); BG PCO2 45.8 mmHg (35.0-45.0); BG PH 7.336 (7.350-7.450); BG PIP 24 cmH2O; BG PO2 127.1 mmHg (75.0-100.0); BG PRESSURE SUPPORT 8; BG SAMPLE SITE A-LINE; BG TIDAL VOLUME(mL) 550 mL; BG TOTAL HEMOGLOBIN 10.7 g/dL (12.0-18.0); BG VENT MODE VENT - SIMV; BG VENT RATE 12 set
[2018-03-18] MEDS: CEFAZOLIN 1000MG PREMIX 50 ML IV SCH (05:14)
[2018-03-18 05:22] LABS: BASOPHILS % 0.1 % (0.0-2.0); HEMATOCRIT. 29.2 % (42.0-52.0); HEMOGLOBIN. 9.9 g/dL (14.0-18.0); LYMPHOCYTES % 8.7 % (20.0-50.0); MEAN CORPUSCULAR HEMOGLOBIN 28.5 pg (28.0-32.0); MEAN CORPUSCULAR VOLUME 83.9 fL (80.0-94.0); MONOCYTES % 13.3 % (2.0-8.0); NEUTROPHILS % 77.9 % (40.0-76.0); PLATELET 83 x1000/uL (130-400); RED BLOOD CELL COUNT 3.48 mill/uL (4.7-6.1); RED CELL DISTRIBUTION WIDTH 14.5 % (11.6-14.6)
[2018-03-18] MEDS: DEXT 5%/0.45% NACL 1000ML 1,000 ML IV SCH ×2 (06:14→22:51)
[2018-03-18] MEDS ORDERED: ALBUMIN HUMAN 12.5G/250ML (5%) IV SCH (07:30)
[2018-03-18] MEDS ORDERED: FUROSEMIDE 20MG/2ML VIAL IVP SCH (07:30)
[2018-03-18] MEDS: DOCUSATE SODIUM 100MG CAPSULE PO SCH ×3 (08:20→16:43)
[2018-03-18] MEDS: FAMOTIDINE 20MG/2ML VIAL IV SCH (08:27)
[2018-03-18] MEDS: MAGNESIUM 1 G PREMIX 100 ML IV PRN (08:51)
[2018-03-18 09:01] LABS: BG BASE EXCESS -1.6 mmol/L (-2.0-2.0); BG CARBOXYHEMOGLOBIN 0.1 % (0.5-1.5); BG DEOXYHEMOGLOBIN 1.7 % (0.0-5.0); BG FRACTION INSPIRED OXYGEN 40; BG HCO3 ACT 24.2 mmol/L (22.0-26.0); BG OXYGEN SATURATION 98.3 % (92.0-98.5); BG OXYHEMOGLOBIN 98.2 % (94.0-97.0); BG PCO2 45.6 mmHg (35.0-45.0); BG PH 7.343 (7.350-7.450); BG PO2 157.3 mmHg (75.0-100.0); BG PRESSURE SUPPORT 8; BG SAMPLE SITE A-LINE; BG TIDAL VOLUME(mL) 550 mL; BG TOTAL HEMOGLOBIN 9.7 g/dL (12.0-18.0); BG VENT MODE VENT - SIMV; BG VENT RATE 10 set
[2018-03-18] MEDS: INSULIN REGULAR (DRIP) 100 UNITS in SODIUM CHLORIDE 0.9% 100 ML IV SCH (10:09)
[2018-03-18 10:51] LABS: BG BASE EXCESS -2.3 mmol/L (-2.0-2.0); BG CARBOXYHEMOGLOBIN 0.1 % (0.5-1.5); BG DEOXYHEMOGLOBIN 1.7 % (0.0-5.0); BG FRACTION INSPIRED OXYGEN 40; BG METHEMOGLOBIN 0.1 % (0.0-1.5); BG OXYGEN SATURATION 98.3 % (92.0-98.5); BG OXYHEMOGLOBIN 98.1 % (94.0-97.0); BG PCO2 41.9 mmHg (35.0-45.0); BG PH 7.358 (7.350-7.450); BG PO2 156.4 mmHg (75.0-100.0); BG PRESSURE SUPPORT 8; BG SAMPLE SITE A-LINE; BG TIDAL VOLUME(mL) 550 mL; BG TOTAL HEMOGLOBIN 9.2 g/dL (12.0-18.0); BG VENT MODE VENT - SIMV; BG VENT RATE 8 set
[2018-03-18 11:54] LABS: BG BASE EXCESS -0.9 mmol/L (-2.0-2.0); BG CARBOXYHEMOGLOBIN 0.3 % (0.5-1.5); BG DEOXYHEMOGLOBIN 1.7 % (0.0-5.0); BG FRACTION INSPIRED OXYGEN 40; BG HCO3 ACT 24.4 mmol/L (22.0-26.0); BG METHEMOGLOBIN 0.1 % (0.0-1.5); BG OXYGEN SATURATION 98.3 % (92.0-98.5); BG OXYHEMOGLOBIN 97.9 % (94.0-97.0); BG PCO2 43.5 mmHg (35.0-45.0); BG PH 7.367 (7.350-7.450); BG PO2 155.8 mmHg (75.0-100.0); BG PRESSURE SUPPORT 8; BG SAMPLE SITE A-LINE; BG TOTAL HEMOGLOBIN 9.7 g/dL (12.0-18.0); BG VENT MODE VENT - CPAP
[2018-03-18] MEDS: ALBUMIN HUMAN 12.5G/250ML (5%) IV PRN (14:10)
[2018-03-18] MEDS ORDERED: IPRATROPIUM BROMIDE (0.02%) 0.5MG/2.5ML NEB HHN SCH (14:45)
[2018-03-18] MEDS ORDERED: FUROSEMIDE 40MG/4ML VIAL IVP NR (14:45)
[2018-03-18] MEDS ORDERED: IPRATROPIUM/ALBUTEROL 0.5-3(2.5)MG/3ML NEB HHN PRN (15:15)
[2018-03-18] MEDS ORDERED: ALBUTEROL (0.083%) 2.5MG/3ML NEB HHN SCH (16:00)
[2018-03-18] MEDS: ONDANSETRON HCL 4MG/2ML INJ IV PRN (19:21)
[2018-03-19] VITALS (117 sets, daily range): BP systolic 77–145; BP diastolic 33–74
[2018-03-19] MEDS: BLOOD SUGAR DIAGNOSTIC STRIP TEST SCH ×24 (00:45→23:57)
[2018-03-19] MEDS: IPRATROPIUM/ALBUTEROL 0.5-3(2.5)MG/3ML NEB HHN SCH ×7 (00:58→21:28)
[2018-03-19] MEDS: MAGNESIUM/ALUMINUM HYDROXIDE/SIMETHICONE 30ML UDC NG SCH ×3 (03:47→08:19)
[2018-03-19] MEDS: MAGNESIUM HYDROXIDE 400MG/5ML 30ML UDC PO SCH ×5 (03:47→16:39)
[2018-03-19] MEDS: ONDANSETRON HCL 4MG/2ML INJ IV PRN (05:54)
[2018-03-19 06:23] LABS: BASOPHILS % 0.1 % (0.0-2.0); EOSINOPHILS % 0.1 % (0.0-5.0); HEMATOCRIT. 22.8 % (42.0-52.0); HEMOGLOBIN. 7.8 g/dL (14.0-18.0); LYMPHOCYTES % 7.7 % (20.0-50.0); MEAN CORPUSCULAR HEMOGLOBIN 29.1 pg (28.0-32.0); MEAN CORPUSCULAR VOLUME 85.1 fL (80.0-94.0); MEAN PLATELET VOLUME 10.8 fl (7.4-10.4); MONOCYTES % 10.8 % (2.0-8.0); NEUTROPHILS % 81.3 % (40.0-76.0); PLATELET 65 x1000/uL (130-400); RED BLOOD CELL COUNT 2.68 mill/uL (4.7-6.1); RED CELL DISTRIBUTION WIDTH 15.7 % (11.6-14.6)
[2018-03-19 06:27] LABS: PHOSPHORUS 4.7 mg/dL (2.5-4.9)
[2018-03-19] MEDS ORDERED: FUROSEMIDE 40MG/4ML VIAL IVP NR ×2 (07:15→22:00)
[2018-03-19] MEDS: DOCUSATE SODIUM 100MG CAPSULE PO SCH ×2 (08:22→16:39)
[2018-03-19] MEDS: FAMOTIDINE 20MG/2ML VIAL IV SCH (08:22)
[2018-03-19] MEDS ORDERED: MAGNESIUM 2 G PREMIX 50 ML IV NR (09:30)
[2018-03-19] MEDS: INSULIN REGULAR (DRIP) 100 UNITS in SODIUM CHLORIDE 0.9% 100 ML IV SCH (12:54)
[2018-03-19] MEDS ORDERED: ALBUMIN HUMAN 12.5G/250ML (5%) IV ONE (15:43)
[2018-03-19] MEDS ORDERED: POTASSIUM CHLORIDE 10MEQ IN WATER 50ML PREMIX IV ONE (15:43)
[2018-03-19] MEDS ORDERED: CEFAZOLIN 1000MG/50ML PREMIX IV ONE (15:43)
[2018-03-19] MEDS ORDERED: MAGNESIUM SULFATE 1G IN DEXT 5% 100ML PREMIX IV ONE (15:43)
[2018-03-19 16:14] LABS: HEMATOCRIT 30.4 % (42.0-52.0); HEMOGLOBIN 10.2 g/dL (14.0-18.0)
[2018-03-19] MEDS: DEXT 5%/0.45% NACL 1000ML 1,000 ML IV SCH (16:39)
[2018-03-19] MEDS ORDERED: MAGNESIUM HYDROXIDE 400MG/5ML 30ML UDC PO SCH (20:00)
[2018-03-19] MEDS ORDERED: FUROSEMIDE 40MG/4ML VIAL IVP ONE (22:15)
[2018-03-19 22:33] LABS: CHLORIDE 102 mEq/L (98-107)
[2018-03-19] MEDS: IRON SUCROSE COMPLEX 100 MG/5 ML ML IV SCH (22:56)
[2018-03-19] MEDS ORDERED: EPOETIN ALFA 4000UNITS/ML VIAL SUBCUT NR (23:30)
[2018-03-20] VITALS (49 sets, daily range): BP systolic 92–131; BP diastolic 39–82
[2018-03-20] MEDS: BLOOD SUGAR DIAGNOSTIC STRIP TEST SCH ×12 (01:14→21:30)
[2018-03-20] MEDS: IPRATROPIUM/ALBUTEROL 0.5-3(2.5)MG/3ML NEB HHN SCH ×5 (01:24→20:41)
[2018-03-20] MEDS ORDERED: AMIODARONE HCL 900 MG in DEXT 5% WATER 482 ML IV PRN (03:00)
[2018-03-20] MEDS ORDERED: AMIODARONE HCL 150 MG in DEXT 5% WATER 100 ML IV SCH (03:00)
[2018-03-20 05:43] LABS: BASOPHILS % 0.1 % (0.0-2.0); EOSINOPHILS % 0.3 % (0.0-5.0); HEMATOCRIT. 26.5 % (42.0-52.0); HEMOGLOBIN. 9.1 g/dL (14.0-18.0); LYMPHOCYTES % 9.4 % (20.0-50.0); MEAN CORPUSCULAR HEMOGLOBIN 29.6 pg (28.0-32.0); MEAN CORPUSCULAR VOLUME 85.6 fL (80.0-94.0); MEAN PLATELET VOLUME 9.5 fl (7.4-10.4); MONOCYTES % 6.6 % (2.0-8.0); NEUTROPHILS % 83.6 % (40.0-76.0); PLATELET 106 x1000/uL (130-400); RED BLOOD CELL COUNT 3.09 mill/uL (4.7-6.1); RED CELL DISTRIBUTION WIDTH 15.2 % (11.6-14.6)
[2018-03-20 06:08] LABS: CHLORIDE 101 mEq/L (98-107)
[2018-03-20 06:11] LABS: PHOSPHORUS 2.6 mg/dL (2.5-4.9)
[2018-03-20] MEDS: ONDANSETRON HCL 4MG/2ML INJ IV PRN (06:47)
[2018-03-20] MEDS: KCL 10MEQ/50ML PREMIX 150 ML IV PRN ×2 (08:02→09:11)
[2018-03-20] MEDS: DOCUSATE SODIUM 100MG CAPSULE PO SCH ×2 (08:24→17:00)
[2018-03-20] MEDS ORDERED: FUROSEMIDE 40MG/4ML VIAL IVP SCH (08:30)
[2018-03-20] MEDS ORDERED: DEXTROSE 50% WATER 50ML SYRINGE IV PRN (09:15)
[2018-03-20] MEDS: PANTOPRAZOLE SODIUM 40 MG/VIAL IV SCH (09:34)
[2018-03-20] MEDS ORDERED: INSULIN GLARGINE UD 100 UNITS/ML SYR SUBCUT NR (10:30)
[2018-03-20] MEDS: KCL 10MEQ/50ML PREMIX 100 ML IV PRN (10:30)
[2018-03-20] MEDS ORDERED: ALBUMIN HUMAN 12.5G/250ML (5%) IV NR (11:45)
[2018-03-20] MEDS: INSULIN LISPRO 100 UNITS/ML SUBCUT SCH ×3 (12:28→21:36)
[2018-03-20] MEDS: IRON SUCROSE COMPLEX 100 MG/5 ML ML IV SCH (21:06)
[2018-03-21] VITALS (25 sets, daily range): BP systolic 103–124; BP diastolic 49–62
[2018-03-21 05:42] LABS: BASOPHILS % 0.2 % (0.0-2.0); EOSINOPHILS % 0.3 % (0.0-5.0); HEMATOCRIT. 28.9 % (42.0-52.0); HEMOGLOBIN. 9.8 g/dL (14.0-18.0); LYMPHOCYTES % 18.1 % (20.0-50.0); MEAN CORPUSCULAR HEMOGLOBIN 29.5 pg (28.0-32.0); MEAN CORPUSCULAR VOLUME 87.2 fL (80.0-94.0); MEAN PLATELET VOLUME 9.5 fl (7.4-10.4); MONOCYTES % 11.8 % (2.0-8.0); NEUTROPHILS % 69.6 % (40.0-76.0); PLATELET 105 x1000/uL (130-400); RED BLOOD CELL COUNT 3.32 mill/uL (4.7-6.1); RED CELL DISTRIBUTION WIDTH 16.1 % (11.6-14.6)
[2018-03-21 06:09] LABS: CHLORIDE 102 mEq/L (98-107)
[2018-03-21] MEDS: BLOOD SUGAR DIAGNOSTIC STRIP TEST SCH ×4 (07:02→21:10)
[2018-03-21] MEDS: INSULIN LISPRO 100 UNITS/ML SUBCUT SCH ×4 (07:02→21:00)
[2018-03-21] MEDS: DOCUSATE SODIUM 100MG CAPSULE PO SCH ×2 (08:00→17:00)
[2018-03-21] MEDS: PANTOPRAZOLE SODIUM 40 MG/VIAL IV SCH (08:00)
[2018-03-21] MEDS: KCL 10MEQ/50ML PREMIX 100 ML IV PRN (08:01)
[2018-03-21] MEDS ORDERED: CALCIUM CHLORIDE 1,000 MG in DEXT 5% WATER 90 ML IV NR (09:00)
[2018-03-21] MEDS ORDERED: MAGNESIUM 2 G PREMIX 50 ML IV PRN (10:00)
[2018-03-21 10:14] LABS: HEMATOCRIT. 29.2 % (42.0-52.0); MEAN CORPUSCULAR HEMOGLOBIN 29.7 pg (28.0-32.0); MEAN CORPUSCULAR VOLUME 87.1 fL (80.0-94.0); PLATELET 116 x1000/uL (130-400); RED BLOOD CELL COUNT 3.36 mill/uL (4.7-6.1); RED CELL DISTRIBUTION WIDTH 15.9 % (11.6-14.6)
[2018-03-21 10:52] LABS: PLATELET ESTIMATE SLIGHTLY DECREASED
[2018-03-21 14:11] LABS: HEPATITIS B SURFACE ANTIGEN NEGATIVE
[2018-03-21 14:41] LABS: HEPATITIS A AB IGM NEGATIVE (NEGATIVE)
[2018-03-21] MEDS: IRON SUCROSE COMPLEX 100 MG/5 ML ML IV SCH (20:55)
[2018-03-22] VITALS (23 sets, daily range): BP systolic 106–131; BP diastolic 41–74
[2018-03-22 06:27] LABS: BASOPHILS % 0.3 % (0.0-2.0); EOSINOPHILS % 0.7 % (0.0-5.0); HEMATOCRIT. 28.9 % (42.0-52.0); HEMOGLOBIN. 9.9 g/dL (14.0-18.0); LYMPHOCYTES % 16.3 % (20.0-50.0); MEAN CORPUSCULAR HEMOGLOBIN 30.2 pg (28.0-32.0); MEAN CORPUSCULAR VOLUME 87.8 fL (80.0-94.0); MEAN PLATELET VOLUME 9.7 fl (7.4-10.4); MONOCYTES % 12.2 % (2.0-8.0); NEUTROPHILS % 70.5 % (40.0-76.0); PLATELET 123 x1000/uL (130-400); RED BLOOD CELL COUNT 3.29 mill/uL (4.7-6.1); RED CELL DISTRIBUTION WIDTH 15.9 % (11.6-14.6)
[2018-03-22] MEDS: BLOOD SUGAR DIAGNOSTIC STRIP TEST SCH ×4 (06:33→20:48)
[2018-03-22] MEDS: INSULIN LISPRO 100 UNITS/ML SUBCUT SCH ×4 (06:34→20:56)
[2018-03-22 06:47] LABS: CHLORIDE 103 mEq/L (98-107)
[2018-03-22 06:59] LABS: HAPTOGLOBIN 154 mg/dL (30-200)
[2018-03-22] MEDS: KCL 10MEQ/50ML PREMIX 100 ML IV PRN (07:08)
[2018-03-22] MEDS: KCL 10MEQ/50ML PREMIX 150 ML IV PRN (07:24)
[2018-03-22] MEDS ORDERED: POTASSIUM CHLORIDE 10MEQ IN WATER 50ML PREMIX IV ONE (07:44)
[2018-03-22] MEDS: DOCUSATE SODIUM 100MG CAPSULE PO SCH ×2 (09:00→18:03)
[2018-03-22] MEDS: PANTOPRAZOLE SODIUM 40 MG/VIAL IV SCH (09:00)
[2018-03-22] MEDS ORDERED: CALCIUM CHLORIDE 1,000 MG in DEXT 5% WATER 90 ML IV SCH (10:00)
[2018-03-23] VITALS (12 sets, daily range): BP systolic 98–128; BP diastolic 51–73
[2018-03-23] MEDS: BLOOD SUGAR DIAGNOSTIC STRIP TEST SCH ×4 (06:03→21:39)
[2018-03-23 07:01] LABS: BASOPHILS % 0.3 % (0.0-2.0); EOSINOPHILS % 0.8 % (0.0-5.0); HEMATOCRIT. 28.3 % (42.0-52.0); HEMOGLOBIN. 9.5 g/dL (14.0-18.0); MEAN CORPUSCULAR HEMOGLOBIN 29.9 pg (28.0-32.0); MEAN CORPUSCULAR VOLUME 89.2 fL (80.0-94.0); MEAN PLATELET VOLUME 9.8 fl (7.4-10.4); MONOCYTES % 13.1 % (2.0-8.0); NEUTROPHILS % 68.8 % (40.0-76.0); PLATELET 120 x1000/uL (130-400); RED BLOOD CELL COUNT 3.17 mill/uL (4.7-6.1); RED CELL DISTRIBUTION WIDTH 16.1 % (11.6-14.6)
[2018-03-23 07:06] LABS: CHLORIDE 107 mEq/L (98-107)
[2018-03-23] MEDS: INSULIN LISPRO 100 UNITS/ML SUBCUT SCH ×4 (07:20→21:00)
[2018-03-23] MEDS: PANTOPRAZOLE SODIUM 40 MG/VIAL IV SCH (08:50)
[2018-03-23] MEDS: DOCUSATE SODIUM 100MG CAPSULE PO SCH ×2 (08:50→17:42)
[2018-03-23] MEDS: ASPIRIN 325MG EC TABLET PO SCH (12:56)
[2018-03-24] VITALS (10 sets, daily range): BP systolic 90–131; BP diastolic 49–76
[2018-03-24] MEDS: BLOOD SUGAR DIAGNOSTIC STRIP TEST SCH ×3 (06:11→16:56)
[2018-03-24] MEDS: INSULIN LISPRO 100 UNITS/ML SUBCUT SCH ×2 (06:11→11:55)
[2018-03-24 07:16] LABS: BASOPHILS % 0.3 % (0.0-2.0); EOSINOPHILS % 0.9 % (0.0-5.0); HEMATOCRIT. 31.2 % (42.0-52.0); HEMOGLOBIN. 10.4 g/dL (14.0-18.0); LYMPHOCYTES % 16.2 % (20.0-50.0); MEAN CORPUSCULAR HEMOGLOBIN 30.1 pg (28.0-32.0); MEAN CORPUSCULAR VOLUME 90.6 fL (80.0-94.0); MONOCYTES % 10.4 % (2.0-8.0); NEUTROPHILS % 72.2 % (40.0-76.0); PLATELET 136 x1000/uL (130-400); RED BLOOD CELL COUNT 3.44 mill/uL (4.7-6.1); RED CELL DISTRIBUTION WIDTH 16.8 % (11.6-14.6)
[2018-03-24 07:31] LABS: CHLORIDE 109 mEq/L (98-107)
[2018-03-24 07:43] LABS: PHOSPHORUS 2.4 mg/dL (2.5-4.9)
[2018-03-24] MEDS: ASPIRIN 325MG EC TABLET PO SCH (08:22)
[2018-03-24] MEDS: DOCUSATE SODIUM 100MG CAPSULE PO SCH ×2 (08:22→17:00)
[2018-03-24] MEDS: PANTOPRAZOLE SODIUM 40 MG/VIAL IV SCH (08:22)
[2018-03-24] MEDS ORDERED: PANT40VI PO (14:09)
[2018-03-24] MEDS ORDERED: ASA5EC PO (14:09)
[2018-03-24] MEDS ORDERED: AMIO100T4 PO (14:10)
[2018-03-24] MEDS ORDERED: AMIODARONE HCL 200 MG TABLET PO SCH (14:15)
[2018-03-24] MEDS ORDERED: FAMOTIDINE 20MG TABLET PO SCH (21:00)
== END 2018-03-24 17:00 | disposition home health service (06) | DRG 163 ==
LOC: ER 12:05 → 7WST 16:30 → ENRESERV 19:32 → 3WST 03-12 10:00 → CVICU 03-17 09:03 → 3WST 03-22 21:58
PROVIDERS: ADMIT Internal Medicine; ATTEND Internal Medicine
PROC: 4A023N7 Measurement of Cardiac Sampling and Pressure, Left Heart, Percutaneous Approach (ICD-10-PCS; principal; 2018-03-12)
PROC: B2151ZZ Fluoroscopy of Left Heart using Low Osmolar Contrast (ICD-10-PCS; 2018-03-12)
PROC: B2111ZZ Fluoroscopy of Multiple Coronary Arteries using Low Osmolar Contrast (ICD-10-PCS; 2018-03-12)
PROC: B24BZZ4 Ultrasonography of Heart with Aorta, Transesophageal (ICD-10-PCS; 2018-03-12)
PROC: 02RG08Z Replacement of Mitral Valve with Zooplastic Tissue, Open Approach (ICD-10-PCS; 2018-03-17)
PROC: B246ZZ4 Ultrasonography of Right and Left Heart, Transesophageal (ICD-10-PCS; 2018-03-17)
PROC: 30233L1 Transfusion of Nonautologous Fresh Plasma into Peripheral Vein, Percutaneous Approach (ICD-10-PCS; 2018-03-17)
PROC: 30233N1 Transfusion of Nonautologous Red Blood Cells into Peripheral Vein, Percutaneous Approach (ICD-10-PCS; 2018-03-17)
PROC: 30233R1 Transfusion of Nonautologous Platelets into Peripheral Vein, Percutaneous Approach (ICD-10-PCS; 2018-03-17)
PROC: 30233M1 Transfusion of Nonautologous Plasma Cryoprecipitate into Peripheral Vein, Percutaneous Approach (ICD-10-PCS; 2018-03-17)
PROC: 30233K1 Transfusion of Nonautologous Frozen Plasma into Peripheral Vein, Percutaneous Approach (ICD-10-PCS; 2018-03-17)
PROC: 5A1221Z Performance of Cardiac Output, Continuous (ICD-10-PCS; 2018-03-17)
DX: I08.1 Rheumatic disorders of both mitral and tricuspid valves (principal); I50.33 Acute on chronic diastolic (congestive) heart failure; N17.9 Acute kidney failure, unspecified; D69.6 Thrombocytopenia, unspecified; I11.0 Hypertensive heart disease with heart failure; I27.20 Pulmonary hypertension, unspecified; R18.8 Other ascites; E44.1 Mild protein-calorie malnutrition; E78.00 Pure hypercholesterolemia, unspecified; E87.8 Other disorders of electrolyte and fluid balance, not elsewhere classified; E78.5 Hyperlipidemia, unspecified; D64.9 Anemia, unspecified; I77.810 Thoracic aortic ectasia; E11.9 Type 2 diabetes mellitus without complications; I48.0 Paroxysmal atrial fibrillation; I95.9 Hypotension, unspecified; R74.0 Nonspecific elevation of levels of transaminase and lactic acid dehydrogenase [LDH]; R17 Unspecified jaundice; Z68.24 Body mass index [BMI] 24.0-24.9, adult; Z79.899 Other long term (current) drug therapy
CPT/HCPCS: 36415; 36600; 71045; 71275; 76700; 76705; 80048; 80061; 80076; 82248; 82375; 82550; 82553; 82805; 82962; 83010; 83036; 83615; 83735; 83880; 84100; 84439; 84443; 84484; 85007; 85014; 85018; 85027; 85044; 85379; 85520; 86705; 86709; 86803; 86850; 86880; 86900; 86920; 86927; 86945; 87070; 87075; 87340; 93005; 93306; 93312; 93458; 93880; 94002; 94003; 94640; 94664; 97110; 97116; 97163; 97167; 97530; 97535; 99285; A4216; C1725; C1751; C1769; C1887; C1893; C9113; J0282; J0610; J0690; J0885; J1250; J1265; J1644; J1815; J1940; J2175; J2250; J2270; J2370; J2405; J2597; J3010; J3475; J3480; J3490; J7040; J7050; J7060; J7189; J7620; L3908; P9012; P9016; P9017; P9034; P9041; P9047; Q9967

== ENCOUNTER 2018-07-26 10:31 | Emergency (ER) | payer MEDICAID ==
[~2018-07-26] VITALS: Ht 167.6 cm; Wt 73.0 kg
[~2018-07-26 10:31] MED LIST: AMIO100T4 PO; ASA5EC PO; PANT40VI PO
[2018-07-26] MEDS ORDERED: ACETAMINOPHEN 325MG TABLET PO ONE (11:45)
[2018-07-26 12:30] LABS: BASOPHILS % 0.7 % (0.0-2.0); EOSINOPHILS % 0.9 % (0.0-5.0); HEMATOCRIT. 50.1 % (42.0-52.0); HEMOGLOBIN. 16.6 g/dL (14.0-18.0); LYMPHOCYTES % 34.7 % (20.0-50.0); MEAN CORPUSCULAR VOLUME 84.5 fL (80.0-94.0); MEAN PLATELET VOLUME 9.3 fl (7.4-10.4); MONOCYTES % 8.9 % (2.0-8.0); NEUTROPHILS % 54.8 % (40.0-76.0); PLATELET 148 x1000/uL (130-400); RED BLOOD CELL COUNT 5.93 mill/uL (4.7-6.1); RED CELL DISTRIBUTION WIDTH 16.5 % (11.6-14.6)
[2018-07-26 12:35] LABS: CHLORIDE 108 mEq/L (98-107)
[2018-07-26 13:41] LABS: CLARITY URINE CLEAR (CLEAR); COLOR URINE YELLOW (YELLOW); KETONES URINE NEGATIVE (NEGATIVE); LEUKOCYTE ESTERASE URINE NEGATIVE (NEGATIVE); NITRITE URINE NEGATIVE (NEGATIVE); OCCULT BLOOD URINE NEGATIVE (NEGATIVE); PROTEIN URINE NEGATIVE (NEGATIVE); SPECIFIC GRAVITY URINE 1.014 (1.005-1.030); UROBILINOGEN URINE 0.2 E.U./dL (0.2-1.0)
[2018-07-26 13:55] LABS: *AMPHETAMINES SCREEN URINE NEGATIVE (NEGATIVE); *BARBITURATES SCREEN URINE NEGATIVE (NEGATIVE); *BENZODIAZEPINES SCREEN URINE NEGATIVE (NEGATIVE); CANNABINOID URINE SCREEN NEGATIVE (NEGATIVE); PHENCYCLIDINE URINE SCREEN NEGATIVE (NEGATIVE)
[2018-07-26 13:56] LABS: *COCAINE SCREEN URINE NEGATIVE (NEGATIVE); METHADONE URINE SCREEN NEGATIVE (NEGATIVE); OPIATES URINE SCREEN NEGATIVE (NEGATIVE)
[2018-07-26 16:27] VITALS: BP 136/79
== END 2018-07-26 16:28 | disposition home or self-care (01) ==
LOC: ER 11:11
DX: M94.0 Chondrocostal junction syndrome [Tietze] (principal); F41.9 Anxiety disorder, unspecified; E86.0 Dehydration; R07.89 Other chest pain; D72.821 Monocytosis (symptomatic); E87.8 Other disorders of electrolyte and fluid balance, not elsewhere classified; J98.11 Atelectasis; H57.89 Other specified disorders of eye and adnexa; Z87.440 Personal history of urinary (tract) infections; Z79.82 Long term (current) use of aspirin; Z79.899 Other long term (current) drug therapy
CPT/HCPCS: 36415; 71045; 80305; 83735; 83880; 84484; 93005; 99284